=== PATIENT | female | born 1975 | race Caucasian/White ===

== ENCOUNTER 2019-08-23 13:38 | Emergency (ER) | payer BC ==
[2019-08-23] MEDS ORDERED: Albuterol/Ipratropium 3.0-0.5 MG/3 ML Neb Soln NEB ONE ×2 (14:10→17:14)
--- NOTE | 2019-08-23 15:12 | CR ---
Chest: 2 views of the chest were obtained. Comparison: No prior chest x-ray is available. Right-sided lung markings are mildly increased presumably due to mild bronchitis. Left lung is clear. No acute alveolar densities are seen. Lungs are somewhat hyperinflated. Bony structures are unremarkable. Impression: 1. Probable right-sided bronchitis. 2. Slightly hyperinflated lungs, please correlate patient is a smoker for findings to represent early emphysematous change. Findings otherwise could represent good inspiratory effort. 3. No alveolar densities of pneumonia are seen. Diagnostic code #3 This report was dictated in [place] Standard Time
[2019-08-23] MEDS ORDERED: predniSONE 20 MG Tab PO ONE (15:41)
[2019-08-23 16:45] LABS: BLOOD UREA NITROGEN,BUN 10 mg/dL (7.0-18.0); CARBON DIOXIDE,CO2 25.7 mmol/L (21.0-32.0); CHLORIDE,CL 105 mmol/L (98-107); GLUCOSE RANDOM 97 mg/dL (74-106); POTASSIUM,K 4.6 mmol/L (3.5-5.1); SODIUM,NA 142 mmol/L (136-145)
--- NOTE | 2019-08-23 17:24 | EDM.PDOC ---
ED HPI GENERAL MEDICAL PROBLEM - General Chief Complaint: Respiratory Problem Stated Complaint: SOB Time Seen by Provider: 08/23/19 15:23 - History of Present Illness INITIAL COMMENTS - FREE TEXT/NARRATIVE: 44-year-old female, no medical problems, non smoker, presenting to ER for cough wheezing and shortness of breath. symptoms started few days ago in the context of flulike symptoms last week. No leg swelling. No hemoptysis. No history of asthma. Improves when she is laying down. Upper chest Pain Score (Numeric/FACES): 4 - Related Data Allergies Allergy/AdvReac Type Severity Reaction Status Date / Time Dairy Products Allergy Nausea Verified 08/23/19 13:49 latex Allergy Itching Verified 08/23/19 13:49 spironolactone Allergy Cannot Verified 08/23/19 13:49 Remember wheat Allergy Sneezing Verified 08/23/19 13:49 Tazorac 0.1% topical gel Allergy Cannot Uncoded 11/19/13 11:37 Remember Home Meds: Home Meds Adrenal Natural Supplement 1 dose PO ASDIRECTED 01/03/15 [History] Multivitamin with Minerals [Multiple Vitamin] 1 dose PO DAILY 01/03/15 [History] Albuterol Sulfate [Proair Digihaler] 90 mcg IH Q6HR PRN #1 aer.pw.bas 08/23/19 [ Rx] Azithromycin 250 mg PO DAILY #6 tablet 08/23/19 [Rx] predniSONE [Prednisone] 40 mg PO DAILY 4 Days #8 tablet 08/23/19 [Rx] Past Medical History HEENT History: Reports: None Cardiovascular History: Reports: None Respiratory History: Reports: None Gastrointestinal History: Reports: None Genitourinary History: Reports: Other (See Below) Other Genitourinary History: Adrenal fatigue CORPORATE QUALITY MANAGER History: Reports: None Other CORPORATE QUALITY MANAGER History: Musculoskeletal History: Reports: None Neurological History: Reports: None Psychiatric History: Reports: None Endocrine/Metabolic History: Reports: None Hematologic History: Reports: None Immunologic History: Reports: None Oncologic (Cancer) History: Reports: None Dermatologic History: Reports: None - Infectious Disease History Infectious Disease History: Reports: Chicken Pox - Past Surgical History Head Surgeries/Procedures: Reports: None HEENT Surgical History: Reports: Other (See Below) Other HEENT Surgeries/Procedures: L Saliva gland removed 1995 Cardiovascular Surgical History: Reports: None Respiratory Surgical History: Reports: None GI Surgical History: Reports: None Female Surgical History: Reports: Section Endocrine Surgical History: Reports: None Neurological Surgical History: Reports: None Musculoskeletal Surgical History: Reports: None Oncologic Surgical History: Reports: None Dermatological Surgical History: Reports: None Social & Family History - Family History Family Medical History: Noncontributory - Tobacco Use Smoking Status *Q: Never Smoker Second Hand Smoke Exposure: No - Caffeine Use Caffeine Use: Reports: None - Recreational Drug Use Recreational Drug Use: No ED ROS GENERAL - Review of Systems Review Of Systems: See Below Constitutional: Reports: Malaise HEENT: Reports: No Symptoms Respiratory: Reports: Shortness of Breath, Wheezing, Cough Cardiovascular: Reports: No Symptoms Endocrine: Reports: No Symptoms GI/Abdominal: Reports: No Symptoms : Reports: No Symptoms Musculoskeletal: Reports: No Symptoms Skin: Reports: No Symptoms Neurological: Reports: No Symptoms Psychiatric: Reports: No Symptoms Hematologic/Lymphatic: Reports: No Symptoms Immunologic: Reports: No Symptoms ED EXAM, GENERAL - Physical Exam Exam: See Below Exam Limited By: Altered Mental Status General Appearance: Alert Ears: Normal External Exam Nose: Normal Inspection Respiratory/Chest: No Respiratory Distress, Wheezing (mild wheezing noted ), Other Cardiovascular: Normal Peripheral Pulses GI/Abdominal: Normal Bowel Sounds (Female) Exam: Deferred Rectal (Female) Exam: Deferred Back Exam: Full Range of Motion Extremities: Normal Inspection, No Pedal Edema Neurological: Alert, Oriented, Normal Cognition Psychiatric: Normal Affect Skin Exam: Warm EKG INTERPRETATION EKG Date: 08/23/19 Rhythm: NSR [place]: Normal QRS: Normal ST-T: Normal QT: Normal Course - Vital Signs Last Recorded V/S: Last Vital Signs Temp Pulse 89 08/23/19 15:52 Resp 18 08/23/19 15:52 BP 120/78 08/23/19 15:52 Pulse Ox 97 08/23/19 15:52 - Orders/Labs/Meds Orders: Active Orders 24 hr Category Date Time Status EKG Documentation Completion [RC] STAT Care 08/23/19 14:10 Active RT Aerosol Therapy [RC] ASDIRECTED Care 08/23/19 14:11 Active RT Aerosol Therapy [RC] ASDIRECTED Care 08/23/19 17:15 Active Labs: Laboratory Tests 08/23/19 08/23/19 08/23/19 Range/Units 16:09 16:09 16:09 WBC 11.84 H (4.0-11.0) K/uL RBC 4.43 (4.30-5.90) M/uL Hgb 12.4 (12.0-16.0) g/dL Hct 39.7 (36.0-46.0) % MCV 89.6 (80.0-98.0) fL MCH 28.0 (27.0-32.0) pg MCHC 31.2 (31.0-37.0) g/dL RDW Std Deviation 47.8 (28.0-62.0) fl RDW Coeff of Louise 15 (11.0-15.0) % Plt Count 361 (150-400) K/uL MPV 10.80 (7.40-12.00) fL Neut % (Auto) 79.2 (48.0-80.0) % Lymph % (Auto) 12.9 L (16.0-40.0) % [place] % (Auto) 5.8 (0.0-15.0) % Eos % (Auto) 1.9 (0.0-7.0) % Baso % (Auto) 0.2 (0.0-1.5) % Neut # (Auto) 9.4 H (1.4-5.7) K/uL Lymph # (Auto) 1.5 (0.6-2.4) K/uL [place] # (Auto) 0.7 (0.0-0.8) K/uL Eos # (Auto) 0.2 (0.0-0.7) K/uL Baso # (Auto) 0.0 (0.0-0.1) K/uL Nucleated RBC % 0.0 /100WBC Nucleated RBCs # 0 K/uL D-Dimer, Quantitative 1.34 H (0.0-0.50) mg/L FEU Sodium 142 (136-145) mmol/L Potassium 4.6 (3.5-5.1) mmol/L Chloride 105 (98-107) mmol/L Carbon Dioxide 25.7 (21.0-32.0) mmol/L BUN 10 (7.0-18.0) mg/dL Creatinine 0.8 (0.6-1.0) mg/dL Est Cr Clr Drug Dosing 85.76 mL/min Estimated GFR (MDRD) > 60.0 ml/min Glucose 97 (74-106) mg/dL Calcium 9.2 (8.5-10.1) mg/dL Total Bilirubin 0.2 (0.2-1.0) mg/dL AST 14 L (15-37) IU/L ALT 22 (14-63) IU/L Alkaline Phosphatase 58 (46-116) U/L Troponin I < 0.050 (0.000-0.056) ng/mL B-Natriuretic Peptide (<100) PG/ML Total Protein 7.5 (6.4-8.2) g/dL Albumin 2.9 L (3.4-5.0) g/dL Globulin 4.6 H (2.6-4.0) g/dL Albumin/Globulin Ratio 0.6 L (0.9-1.6) 08/23/19 Range/Units 16:09 WBC (4.0-11.0) K/uL RBC (4.30-5.90) M/uL Hgb (12.0-16.0) g/dL Hct (36.0-46.0) % MCV (80.0-98.0) fL MCH (27.0-32.0) pg MCHC (31.0-37.0) g/dL RDW Std Deviation (28.0-62.0) fl RDW Coeff of Louise (11.0-15.0) % Plt Count (150-400) K/uL MPV (7.40-12.00) fL Neut % (Auto) (48.0-80.0) % Lymph % (Auto) (16.0-40.0) % [place] % (Auto) (0.0-15.0) % Eos % (Auto) (0.0-7.0) % Baso % (Auto) (0.0-1.5) % Neut # (Auto) (1.4-5.7) K/uL Lymph # (Auto) (0.6-2.4) K/uL [place] # (Auto) (0.0-0.8) K/uL Eos # (Auto) (0.0-0.7) K/uL Baso # (Auto) (0.0-0.1) K/uL Nucleated RBC % /100WBC Nucleated RBCs # K/uL D-Dimer, Quantitative (0.0-0.50) mg/L FEU Sodium (136-145) mmol/L Potassium (3.5-5.1) mmol/L Chloride (98-107) mmol/L Carbon Dioxide (21.0-32.0) mmol/L BUN (7.0-18.0) mg/dL Creatinine (0.6-1.0) mg/dL Est Cr Clr Drug Dosing mL/min Estimated GFR (MDRD) ml/min Glucose (74-106) mg/dL Calcium (8.5-10.1) mg/dL Total Bilirubin (0.2-1.0) mg/dL AST (15-37) IU/L ALT (14-63) IU/L Alkaline Phosphatase (46-116) U/L Troponin I (0.000-0.056) ng/mL B-Natriuretic Peptide 6 (<100) PG/ML Total Protein (6.4-8.2) g/dL Albumin (3.4-5.0) g/dL Globulin (2.6-4.0) g/dL Albumin/Globulin Ratio (0.9-1.6) Meds: Medications Discontinued Medications Generic Name Dose Route Start Last Admin Trade Name Freq PRN Reason Stop Dose Admin Albuterol/Ipratropium 3 ml 08/23/19 14:10 08/23/19 14:28 Duoneb 3.0-0.5 Mg/3 Ml NEB 08/23/19 14:11 3 ml ONETIME ONE Administration Albuterol/Ipratropium 3 ml 08/23/19 17:14 08/23/19 17:40 Duoneb 3.0-0.5 Mg/3 Ml NEB 08/23/19 17:15 3 ml ONETIME ONE Administration Iopamidol 50 ml 08/23/19 18:29 08/23/19 18:31 Isovue Multipack-370 (76%) IVPUSH 08/23/19 18:30 50 ml ONETIME ONE Administration Prednisone 40 mg 08/23/19 15:41 08/23/19 15:50 Prednisone PO 08/23/19 15:42 40 mg ONETIME ONE Administration - Re-Assessments/Exams Free Text/Narrative Re-Assessment/Exam: 08/23/19 19:16 Patient feels improved. Symptoms likely from viral syndrome. CT PE negative. will give her a course of prednisone, azithromycin and albuterol inhaler as needed. return precautions discussed with the patient. Departure - Departure Time of Disposition: 19:17 Disposition: Home, Self-Care 01 Clinical Impression: Bronchitis, Acute bronchiolitis - Discharge Information *PRESCRIPTION DRUG MONITORING PROGRAM REVIEWED*: Not Applicable *COPY OF PRESCRIPTION DRUG MONITORING REPORT IN PATIENT CHRISTI: Not Applicable Prescriptions: Albuterol Sulfate [Proair Digihaler] 90 mcg IH Q6HR PRN #1 aer.pw.bas PRN Reason: Cough Azithromycin 250 mg PO DAILY #6 tablet predniSONE [Prednisone] 40 mg PO DAILY 4 Days #8 tablet Instructions: Bronchospasm, Adult, [id number] Referrals: PCP,None [Primary Care Provider] - Forms: ED Department Discharge Additional Instructions: Return to ED if you develop worsening dyspnea, fever, or any concerns. The following information is given to patients seen in the emergency department who are being discharged to home. This information is to outline your options for follow-up care. We provide all patients seen in our emergency department with a follow-up referral. The need for follow-up, as well as the timing and circumstances, are variable depending upon the specifics of your emergency department visit. If you don't have a primary care physician on staff, we will provide you with a referral. We always advise you to contact your personal physician following an emergency department visit to inform them of the circumstance of the visit and for follow-up with them and/or the need for any referrals to a consulting specialist. The emergency department will also refer you to a specialist when appropriate. This referral assures that you have the opportunity for follow-up care with a specialist. All of these measure are taken in an effort to provide you with optimal care, which includes your follow-up. Under all circumstances we always encourage you to contact your private physician who remains a resource for coordinating your care. When calling for follow-up care, please make the office aware that this follow-up is from your recent emergency room visit. If for any reason you are refused follow-up, please contact the [facility] Emergency Department at and asked to speak to the emergency department charge nurse. [facility] - Internal Medicine [address] [place] [id number] Sepsis Event Note - Evaluation Sepsis Screening Result: No Definite Risk - Focused Exam Vital Signs: Vital Signs Pulse Resp BP Pulse Ox 08/23/19 15:52 89 18 120/78 97 08/23/19 15:00 81 18 95 08/23/19 14:30 85 18 95 08/23/19 14:00 93 18 95 08/23/19 13:44 105 H 18 116/74 95 Date Exam was Performed: 08/23/19 Time Exam was Performed: 19:16 - My Orders Last 24 Hours: My Active Orders 08/23/19 14:10 EKG Documentation Completion [RC] STAT 08/23/19 14:11 RT Aerosol Therapy [RC] ASDIRECTED 08/23/19 17:15 RT Aerosol Therapy [RC] ASDIRECTED - Assessment/Plan Last 24 Hours: My Active Orders 08/23/19 14:10 EKG Documentation Completion [RC] STAT 08/23/19 14:11 RT Aerosol Therapy [RC] ASDIRECTED 08/23/19 17:15 RT Aerosol Therapy [RC] ASDIRECTED
[2019-08-23] MEDS ORDERED: Iopamidol 755 MG/ML 500 ML Multipack Bottle IVPUSH ONE (18:29)
--- NOTE | 2019-08-23 18:58 | CT ---
CT chest Technique: Multiple axial sections through the chest were obtained. Intravenous contrast was utilized. Study has been performed as a pulmonary angiogram protocol. Comparison: Prior chest x-ray performed earlier on the same day (2:11 PM). Findings: Pulmonary arteries are moderately well opacified. No filling defects are seen within the main or segmental branches to indicate pulmonary emboli. Heart size is normal. Visualized upper abdominal structures appear within normal limits. No pericardial thickening is seen. No mediastinal adenopathy is seen. No axillary adenopathy is identified. Patchy interstitial change is noted throughout the right lung as well as lesser change within the left lung. Central bronchial wall thickening is also noted. Bone window settings were reviewed which shows no acute osseous finding. Impression: 1. Findings compatible with bronchitis and probable interstitial pneumonia. Findings most likely are viral. 2. No findings of pulmonary embolism. Diagnostic code #3 This report was dictated in [place] Standard Time
[2019-08-23 19:33] VITALS: BP 117/66; PULSE 106
== END 2019-08-23 19:29 | disposition home or self-care (01) ==
LOC: MW.ED 13:38
DX: J21.9 Acute bronchiolitis, unspecified (principal); J40 Bronchitis, not specified as acute or chronic; Z79.899 Other long term (current) drug therapy; Z91.011 Allergy to milk products; Z91.040 Latex allergy status; Z91.018 Allergy to other foods; Z88.8 Allergy status to other drugs, medicaments and biological substances
CPT/HCPCS: 36415; 71046; 71275; 80053; 83880; 84484; 85025; 85379; 93005; 94640; 99285; A9270; Q9967; 99284; J7620-GY

== ENCOUNTER 2021-07-16 20:08 | Emergency (ER) | payer BC ==
[2021-07-16 21:03] VITALS: BP 128/68; PULSE 75
== END 2021-07-16 21:03 | disposition home or self-care (01) ==
LOC: MW.ED 20:08
DX: H92.01 Otalgia, right ear (principal); Z91.011 Allergy to milk products; Z91.018 Allergy to other foods; Z91.040 Latex allergy status; Z88.8 Allergy status to other drugs, medicaments and biological substances
CPT/HCPCS: 99282

== ENCOUNTER 2023-12-02 14:49 | Emergency (ER) | payer BC ==
[2023-12-02 16:26] VITALS: BP 126/70; PULSE 89
== END 2023-12-02 16:25 | disposition home or self-care (01) ==
LOC: MW.ED 14:49
DX: M25.552 Pain in left hip (principal); R20.8 Other disturbances of skin sensation; Z91.011 Allergy to milk products; Z91.018 Allergy to other foods; Z91.040 Latex allergy status; Z88.8 Allergy status to other drugs, medicaments and biological substances; Z79.899 Other long term (current) drug therapy; Z86.16 Personal history of COVID-19
CPT/HCPCS: 99283